=== PATIENT | male | born 1990 | race Caucasian/White ===

== ENCOUNTER 2021-06-06 20:57 | Emergency (ER) | payer OTHER ==
[~2021-06-06 20:57] MED LIST: BACTRIM DS TAB1 EACH PO; BACTROBAN OINT22 GM EXT; BENTYL 10MG CAP10 MG PO
[2021-06-06 22:56] LABS: HEMOGLOBIN 14.1 gm/dl (14.0-17.5); RED BLOOD COUNT 4.56 M/UL (4.20-5.50); WHITE BLOOD COUNT 7.6 K/UL (4.5-11.0)
[2021-06-06 23:14] LABS: BUN/CREATININE RATIO 15 (0-10)
[2021-06-07] MEDS ORDERED: NASACORT16.9 ML (00:21)
== END 2021-06-07 00:31 | disposition home or self-care (01) ==
LOC: ER1 20:57
PROVIDERS: Physician Assistant
DX: G51.0 Bell's palsy (principal); F17.290 Nicotine dependence, other tobacco product, uncomplicated; R09.81 Nasal congestion
CPT/HCPCS: 70450; 80053; 85025; 85652; 86140; 99285

== ENCOUNTER 2021-11-28 21:04 | Emergency (ER) | payer OTHER ==
[~2021-11-28 21:04] MED LIST changes: +NASACORT16.9 ML
[2021-11-28 21:38] LABS: HEMOGLOBIN 14.9 gm/dl (14.0-17.5); RED BLOOD COUNT 4.68 M/UL (4.20-5.50); WHITE BLOOD COUNT 9.5 K/UL (4.5-11.0)
[2021-11-28 22:04] LABS: BUN/CREATININE RATIO 10 (0-10)
[2021-11-29] MEDS ORDERED: NORFLEX 100 MG100 MG PO (01:39)
[2021-11-29] MEDS ORDERED: IBUPROFEN600 MG PO (01:39)
[2021-11-30 22:08] LABS: CHLAMYDIA TRACHOMATIS, NAA Negative (Negative); NEISSERIA GONORRHOEAE, NAA Negative (Negative)
== END 2021-11-29 01:47 | disposition home or self-care (01) ==
LOC: ER1 21:04
PROVIDERS: Family Medicine
DX: M54.50 Low back pain, unspecified (principal); Z20.822 Contact with and (suspected) exposure to COVID-19
CPT/HCPCS: 0240U; 80053; 81001; 85025; 85652; 86140; 96372; 99284; J1885